=== PATIENT | male | born 1950 ===

== ENCOUNTER 2025-05-25 08:00 | Day surgery (SDC) | payer OTHER ==
[2025-05-20 14:18] VITALS: BP 165/84
[~2025-05-25] VITALS: Ht 172.7 cm; Wt 88.5 kg
[2025-05-25 07:55] LABS: INR 1.09
[~2025-05-25 08:00] MED LIST: COZAAR100 MG PO; ELIQUIS5 MG PO; JARDIANCE10 MG PO; PEPCID AC20 MG PO; REPATHA SU140 MG/1 M SQ; STIOLTO RESPIMAT4 G2; SYNTHROID137 MCG PO; TOPROL XL50 M1 PO
[2025-05-25 08:14] LABS: COL EPI 91 SECONDS (82-175)
[2025-05-25] MEDS ORDERED: CEFTRIAXONE SODIUM 2,000 MG VIAL IV ONE (13:00)
[2025-05-25] MEDS ORDERED: BUPIVACAINE HCL 30 ML VIAL IJ ONE (13:00)
[2025-05-25] MEDS ORDERED: METRONIDAZOLE/SODIUM CHLORIDE 500 MG/100 ML PIGGYBACK IV ONE (13:00)
[2025-05-25] MEDS ORDERED: ENOXAPARIN SODIUM 40 MG/0.4 ML SYRINGE SUBCUTANEO ONE (13:00)
[2025-05-25] MEDS ORDERED: POLY119PG PO (14:16)
[2025-05-25] MEDS ORDERED: NEURONTIN300 MG PO (14:16)
[2025-05-25] MEDS ORDERED: PERCOCET 5-3251 EACH PO (14:16)
[2025-05-25] MEDS ORDERED: LABETALOL HCL 100 MG/20 ML ML IV ONE (15:10)
== END 2025-05-25 18:55 | disposition home or self-care (01) ==
LOC: CIR.AMB 08:00
PROVIDERS: ATTEND Surgery
DX: K40.20 Bilateral inguinal hernia, without obstruction or gangrene, not specified as recurrent (principal)
CPT/HCPCS: 49650; C1781